=== PATIENT | female | born 1970 | race Caucasian/White ===

== ENCOUNTER 2016-10-06 12:45 | Emergency (ER) | payer OTHER ==
--- NOTE | 2016-10-06 13:17 | ERNOTE ---
Dizziness ER Record Date of Service: 10/06/16 Time Seen by Provider: 10/06/16 12:58 Source: patient Exam Limitations: no limitations Immunizations: IMMUNIZATION HX Immunizations Up to Date Yes History of Influenza Vaccine Yes Hx Pneumococcal Vaccination No Allergies/Adverse Reactions: Allergies Allergy/AdvReac Type Severity Reaction Status Date / Time No Known Allergies Allergy Verified 10/06/16 12:55 Home Medications: HOME MEDICATIONS Atorvastatin Calcium [Lipitor] 10 mg PO HS #0 tablet 12/18/12 [Last Taken ] Hydrochlorothiazide [Hydrodiuril] 25 mg PO DAILY@0800 #30 tablet 11/23/14 [Last Taken Unknown] Potassium Chloride [Klor-Con M10] 20 meq PO DAILY 03/26/16 [Last Taken Unknown] Losartan Potassium [Cozaar] 50 mg PO DAILY 09/30/16 [Last Taken Unknown] Multivitamins [Multivitamin Guero] 1 cap PO DAILY 09/30/16 [Last Taken Unknown] lamoTRIgine [Lamictal] 150 mg PO DAILY 09/30/16 [Last Taken Unknown] Cefdinir [Omnicef] 300 mg PO Q12H #20 cap 10/06/16 [Last Taken Unknown] Neomy Sulf/Polymyx B Sulf/Hc [Cortisporin Otic] 5 drop RIGHT EAR QID #10 ml 05/14 [Last Taken Unknown] - History of Present Illness Narrative: Pt. comes in with c/o dizziness and R sided numbness for 4 hours. Pt. also has a headache that is one of the worst that she has ever had. Pt. also states that her heart feels like it is racing and that she has chest pressure. Pt. states taht she has had a ruptured TM with otitis media for a week but denies any other recent illness. Pt. is on oral abx but no otic gtts for this. Pt. denies any weakness and is able to move all extremeties but just cannot feel what she touches. Review of Systems - Review of Systems Constitutional: Present: no symptoms reported. Absent: recent illness, fever, chills, weakness, fatigue, malaise, weight loss, decreased activity level EYE: Present: no symptoms reported ENT: Present: ear pain, ear discharge - purulent. Absent: nose congestion, nasal drainage, sore throat Respiratory: Present: no symptoms reported. Absent: shortness of breath, cough , wheezing Cardiology: Present: chest pain Gastrointestinal/Abdominal: Present: no symptoms reported. Absent: nausea, vomiting, diarrhea, abdominal pain Genitourinary: Present: no symptoms reported Musculoskeletal: Present: no symptoms reported. Absent: back pain, joint pain Neurological: Present: headache - global, dizziness/light-headedness, numbness - R arm All Other Systems: All systems neg except as marked - Patient's Past Medical History Patient History - Medical: Headache, Kidney stone, Seizures Patient History - Cardiac/Respiratory: Hypertension, Hyperlipidemia Patient History - Cancer: No Hx of Cancer Patient History - Surgical Procedures: Cholecystectomy, Hysterectomy Patient History - Other: None - Family History Mother Family History - Cardiac/Respiratory: CHF, Myocardial Infarction - Social History Living Situations: home Abuse History: No History of abuse Psych History: No pertinent hx Does anyone smoke in the home?: No Smoking Status: Never smoker Alcohol Use: none Drug Use: none - Immunizations Immunizations Up to Date: Yes Hx Pneumococcal Vaccination: No History of Influenza Vaccine: Yes Physical Exam - Physical Exam General Appearance: Present: wd/wn, alert, no apparent distress Eye Exam: Normal inspection: bilateral, PERRL: bilateral, EOMI: bilateral Ears, Nose, Throat: Present: abnormal TM (R) - ruptured TM, normal pharynx Neck: Present: normal inspection, nontender. Absent: lymphadenopathy (R), lymphadenopathy (L) Respiratory: Present: no respiratory distress, normal breath sounds, no accessory muscle use, chest nontender, lungs clear. Absent: crackles, rales, rhonchi, stridor, wheezing Cardiovascular/Chest: Present: regular rate, rhythm, no murmur, normal peripheral pulses. Absent: gallop/S3, gallop/S4, diastolic murmur, friction rub Gastrointestinal/Abdominal: Present: normal bowel sounds, nontender, nondistended, soft, no organomegaly Back Exam: Present: normal inspection Extremity Exam: Present: non-tender, normal range of motion, no edema Neurological Exam: Present: oriented, normal mood/affect, normal cerebellar test , motor weakness - L arm and hand. Absent: facial droop Skin Exam: Present: normal color, warm/dry. Absent: pallor, skin rash ED Progress - Date and Time Seen: Date and Time: 10/06/16 16:16 Pt. numbness and tingling and headache resolved after treatment. Pt. CRP and ESR elevated but is similar than past trends. Pt. needs outpt. workup to determine why coags are elevated but this can be done on nonemergent basis. Feel that pt. likely had complicated migraine and she will follow up with PCP for further treatment and we will switch abx as she is not improving and has mastoid effusion and TM rupture. Discussed plan with Dr Bonilla and he is in agreement. 10/06/16 16:27 - Results and Orders Patient's Lab Results:: I have reviewed the patient's lab results. - Vital Signs Patient's Vital Signs:: I have reviewed the patient's vital signs. Vital Signs: Vital Signs 10/06/16 10/06/16 12:49 12:59 Temperature 36.6 C Pulse Rate 90 91 Respiratory 15 Rate Blood Pressure 146/85 O2 Sat by Pulse 98 Oximetry - Progress/Reassessment Chief Complaint: Dizziness Departure Clinical Impression: Otitis media Qualifiers: Otitis media type: suppurative Laterality: right Chronicity: acute Recurrence: recurrent Spontaneous tympanic membrane rupture: with spontaneous rupture Qualified Code(s): H66.014 - Acute suppurative otitis media with spontaneous rupture of ear drum, recurrent, right ear - Departure Disposition: Home self-care Condition: Good Instructions: Otitis Media, Adult, [id number], Migraine Headache, Easy-to- Read Additional Instructions: Please follow up with primary provider in 2-3 days. Referrals: Emely Mays MD [Primary Care Provider] - Prescriptions: Cefdinir [Omnicef] 300 mg PO Q12H #20 cap Neomy Sulf/Polymyx B Sulf/Hc [Cortisporin Otic] 5 drop RIGHT EAR QID #10 ml
--- OUTSIDE RECORDS SUMMARY | 2016-10-06 13:27 | XMS REPORT | Continuity of Care Document ---
:1970 Author Organization [facility] ([facility]) Address [address] [place] [address] Phone [phone] Care Team Providers Name Role Phone Emely Mays Primary Care Provider [phone] Source Comments This disclosure is being made pursuant to the Care Everywhere program, applicable federal and state laws, and may not contain all informaitonavailable regarding this patient.[facility] ([facility]) Active Allergies and Adverse Reactions Allergen Noted Date Severity Reactions Comments No Known Allergies 10/23/2008 NO REACTION Current Medications Prescription Sig. Disp. Refills Start Date End Date Status captopril 12.5 mg Take 12.5 mg by mouth 11/09/2010 Active tablet 3 times daily. Indications: HYPERTENSION atorvastatin (LIPITOR) Take 10 mg by mouth Active 10 mg tablet daily. lamoTRIgine 100 mg Take 1 Tab by mouth 2 60 Tab 11 07/18/2014 Active tablet times daily. Indications: EPILEPSY Active Problems Problem Noted Date Hemiplegia, unspecified, affecting unspecified side 01/25/2008 Screening for malignant neoplasm of the cervix 11/29/2006 Generalized nonconvulsive epilepsy without mention of intractable epilepsy Migraine, unspecified, without mention of intractable migraine without 2004 mention of status migrainosus Social History Tobacco Use Types Packs/Day Years Used Date Never Smoker Smokeless Tobacco: Never Used Alcohol Use Drinks/Week oz/Week Comments No Last Filed Vital Signs Vital Sign Reading Time Taken Blood Pressure 156/97 01/13/2013 1:24 PM CDT Pulse 97 01/13/2013 1:24 PM CDT Temperature 36.8 C (98.3 F) 01/13/2013 1:24 PM CDT Respiratory Rate 16 01/13/2013 1:24 PM CDT Height 1.575 m (5' 2") 12/02/2012 10:57 AM CDT Weight 124.921 kg (275 lb 6.4 oz) 01/13/2013 1:24 PM CDT Body Mass Index 50.36 01/13/2013 1:24 PM CDT Oxygen Saturation 99% 12/12/2012 9:37 AM CDT Plan of Care Health Maintenance Due Date Last Done Comments Hepatitis B Vaccine (1 of 3 1969 - Primary Series) Tdap Vaccine 01/16/1980 MMR Vaccine 1987 Td Vaccine 1987 Lipid Disorder Screening 10/27/2006 10/27/2001 Mammogram 05/13/2012 05/13/2011, 05/06/2009, 11/17/2004 Cervical Cancer Screening 05/13/2014 05/13/2011, Additional history exists 05/06/2009, 11/29/2006 Influenza Vaccine: Seasonal 01/27/2016 (#1) Results from Last 3 Months Not on file
[2016-10-06 13:45] LABS: Hematocrit 41.7 % (37.0-47.0); Hemoglobin 14.1 gm/dL (12.5-16.0); Mean Cell Volume 88.7 fl (78-100); Mean Corpuscular Hgb Conc 33.8 g/dl (32-36); Mean Platelet Volume 9.1 fl (6.0-9.5); Neutrophil # 7.3 K/mm3 (1.3-6.0); Neutrophil % 71.4 % (42-75.0); Platelet Count 364 K/mm3 (150-450); Red Cell Distribution Width 13.1 % (11.5-14.0); White Blood Count 10.2 K/mm3 (4.0-10.5)
[2016-10-06 13:56] LABS: INR 1.67 INR (0.90-1.10); Prothrombin Time (Patient) 17.4 Seconds (9.4-11.4)
[2016-10-06 14:03] LABS: ALT 44 U/L (19-67); AST 29 U/L (0-48); Albumin * 3.6 gm/dl (3.4-5.0); Alkaline Phosphatase * 113 U/L (50-170); Anion Gap 13.2 mmol/L (6.8-13.8); Bilirubin, Total 0.3 mg/dL (0.0-1.1); Blood Urea Nitrogen 17 mg/dL (3-23); Carbon Dioxide 28.3 mmol/L (24-32.6); Chloride 103 mmol/L (97-106); Glucose * 97 mg/dL (70-110); Potassium 3.5 mmol/L (3.4-4.6); Sodium 141 mmol/L (132-142); Total Protein 8.1 gm/dL (6.2-8.2); Troponin I Less than 0.017 ng/ml (0.00-0.10)
[2016-10-06 14:22] LABS: Urine Bilirubin Negative (NEGATIVE); Urine Blood Negative /ul (NEGATIVE); Urine Ketone Negative (NEGATIVE); Urine Nitrite Negative (NEGATIVE); Urine Protein Negative (NEGATIVE); Urine Specific Gravity 1.015 SP.GR. (1.005-1.010); Urine Urobilinogen Normal (NORMAL)
[2016-10-06 14:29] LABS: Urine Appearance Clear; Urine Bacteria None Seen; Urine Color Yellow; Urine RBC None Seen /hpf (0-5); Urine WBC None Seen /hpf (0-5)
[2016-10-06 14:37] LABS: CRP 3.7 mg/dL (0.0-0.9)
[2016-10-06] MEDS ORDERED: KETOROLAC TROMETHAMINE 30 MG/ML VIAL IV ONE (14:46)
[2016-10-06] MEDS ORDERED: METOCLOPRAMIDE HCL 5 MG/ML VIAL IV ONE (14:46)
[2016-10-06] MEDS ORDERED: NORMAL SALINE 1,000 ML IV ONE (14:46)
[2016-10-06] MEDS ORDERED: diphenhydrAMINE HCL 50 MG/ML VIAL IV ONE (14:46)
[2016-10-06] MEDS ORDERED: METOCLOPRAMIDE HCL 5 MG/ML VIAL ONE (14:58)
[2016-10-06] MEDS ORDERED: KETOROLAC TROMETHAMINE 30 MG/ML VIAL ONE (14:58)
[2016-10-06] MEDS ORDERED: diphenhydrAMINE HCL 50 MG/ML VIAL ONE (14:58)
[2016-10-06 16:07] VITALS: BP 140/67
== END 2016-10-06 16:36 | disposition home or self-care (01) ==
LOC: ER 12:45
DX: H66.014 Acute suppurative otitis media with spontaneous rupture of ear drum, recurrent, right ear (principal); I10 Essential (primary) hypertension; E78.5 Hyperlipidemia, unspecified
CPT/HCPCS: 36415; 70450; 71020; 80053; 81001; 84484; 85025; 85610; 85652; 85730; 86140; 93005; 96374; 96375; 99284; G0481